=== PATIENT | male | born 1955 | race Caucasian/White ===

== ENCOUNTER 2024-11-24 11:15 | Emergency (ER) | payer MEDICARE, MEDICAID, SELFPAY ==
[2024-11-24 11:23] VITALS: BP 75/57; PULSE 65; RESP 14; TEMP 36.7; O2SAT 97
--- NOTE | 2024-11-24 11:26 | EKG_ITS ---
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
--- NOTE | 2024-11-24 11:26 | XR_ITS ---
Examination: CT brain head without contrast. 2-D sagittal coronal reconstructions Date and time of exam:November 24, 2024 12:15 PM Indications: Syncope today, patient fell with injury to the head, head pain CTDI: vol (mGy):49.3 DLP: (mGycm):978 Technique: Multiple CT axial sections of the brain have been obtained, 5 mm slice thickness. Contrast has not been administered. 2-D sagittal, coronal reconstructions have been obtained Low dose protocols were performed. One or more of the following dose reduction techniques were used; automated exposure control, adjustment of the mA and/or KV according to patient size, use of iterative reconstruction technique. Findings: No significant ventricular enlargement. Intra-axial or extra-axial hemorrhage density is not seen. No mass effect or midline shift Basal cisterns are not remarkable. Fourth ventricle is midline. Cranial vault intact. Impression: Negative for acute hemorrhage, mass effect or midline shift
--- NOTE | 2024-11-24 11:27 | PD.EDADULT ---
ED General RME/HPI General Chief complaint: Syncope / Near Syncope Stated complaint: SYNCOPE Time Seen by Provider: 11/24/24 11:26 Arrival date/time: 11/24/24 11:15 CC: Syncope hypotension HPI patient presents to the ER via EMS report hypotension after syncopal event at the assisted care facility where the patient resides. Baseline reports the patient is baseline confused, patient was arousable with sternal rub speaking to me with simple answers to very simple questions unable to answer what caused the fall. Currently patient has no specific complaints. Related Data Previous Rx's ?Medication ?Instructions ?Recorded albuterol sulfate 90 mcg/actuation 2 puff inhalation Q6H PRN 03/24/22 aerosol inhaler (Proventil HFA) shortness of breath or wheezing #8.5 grams lisinopril 10 mg tablet 10 mg PO QDAY #30 tabs 10/18/22 Allergies Allergy/AdvReac Type Severity Reaction Status Date / Time acetaminophen (From Tylenol) Allergy Severe diarrhea,abd. Verified 10/13/22 11:15 pain codeine Allergy Severe Nausea Verified 10/13/22 11:15 Review of Systems Review of Systems ROS Unobtainable: unobtainable due to mental status Past Medical History Past Medical History CARDIAC: Negative Cardiac Disorders, Angina, Atherosclerotic Heart Disease, Aneurysm or Congestive Heart Failure RESPIRATORY: Negative Chronic Obstructive Pulmonary Disease (COPD) GENITOURINARY: Negative Renal Disease ENDOCRINE: Negative Diabetes Mellitus Type 1 or Diabetes Mellitus Type 2 Social History SMOKING STATUS: Current every day smoker ED Exam Narrative Physical exam: [General: Appears not in any acute distress Head normocephalic, no step-offs hematoma induration ulcerations or depressions. HEENT: Eyes pupils are PERRLA EOMs intact tracking no trapping. Nose no rhinorrhea or epistaxis. Mouth pink dry membranes uvula is midline swallow symmetrical phonation is normal. All other subsystems of HEENT are within acceptable limits Neck is supple nontender Chest equal chest rise nontender to palpation Respiratory: Clear to auscultation no wheezes crackles or rubs CV: Rate rhythm is regular no murmurs rubs or clicks Abdomen is soft nontender, positive bowel sounds all 4 quadrants Back: No CVA tenderness no spinous process tenderness from cervical spine thoracic and lumbar spine Skin: Intact no petechiae rash induration ulceration or crepitus Extremities: Moving all extremity against resistance cap refill less than 2 seconds neurosensory intact Neuro: Awake alert oriented x1, self, Glascow coma 15 no focal deficits] Course Course Course Narrative: At 12 1:33 liter of fluid. The patient still remains hypotensive with a pressure of 97/64. Will order an additional liter of fluid form. Quality Measures none Orders Category Date Time Status EKG (ED ONLY) *Do not use* NOW Care 11/24/24 11:26 Completed Saline [Insert IV] NOW Care 11/24/24 11:[address] cervical spine wo con Stat Exams 11/24/24 11:[address] head/brain wo con Stat Exams 11/24/24 11:26 Completed EKG (ED Only) Stat Exams 11/24/24 11:26 Draft B-Type Natriuretic Peptide Stat Lab 11/24/24 12:32 Completed CBC Stat Lab 11/24/24 12:32 Completed Comprehensive Metabolic Panel Stat Lab 11/24/24 12:32 Completed Drug Screen,Urine Stat Lab 11/24/24 12:47 Completed LDH (Lactate Dehydrogenase) Stat Lab 11/24/24 12:32 Completed Magnesium Stat Lab 11/24/24 12:32 Completed Partial Thromboplastin Time Stat Lab 11/24/24 12:32 Completed Prothrombin Time with INR Stat Lab 11/24/24 12:32 Completed Troponin I Stat Lab 11/24/24 12:32 Completed Urinalysis Stat Lab 11/24/24 12:52 Completed Sodium Chloride 0.9% 1000 ml [Ns] 1,000 ml Med 11/24/24 12:33 Discontinued IV 999 mls/hr Vital Signs Vital signs: Vital Signs Temperature 98.0 F 11/24/24 11:23 Pulse Rate 65 11/24/24 11:23 Respiratory Rate 14 11/24/24 11:23 Blood Pressure 75/57 L 11/24/24 11:23 Pulse Oximetry (%) 97 11/24/24 11:23 [facility] Patient data External records reviewed:: [facility] previous records and EMS form Clinical information provided by:: patient and EMS Social determinants that could affect healthcare access:: none Patient has the following chronic illnesses:: CVA How is presenting disease/condition affected by chronic disease/condition?: uneffected by Evaluation data The following diagnostics were reviewed and interpreted by me:: lab results, radiology exam(s) and EKG tracing(s) Lab and/or radiology exams considered but not ordered:: EKG performed at 1152 shows a ventricular rate of 61 DE interval 127 QRS of 104 QTc of 400 this is sinus rhythm. CBC shows a mild leukocytosis of 14.6 H&H of 12.8 and 39.3 platelets within acceptable limits Coags within acceptable limits CMP shows no significant electrolyte imbalances other than a glucose of 109. No transaminitis T. bili elevation or renal impairment Troponin is less then 0.[address] head is negative, CT C-spine is negative as interpreted by me read by radiology. Urine is negative for UTI UDS is negative for illicit drugs. Interpretation Summary: Patient required a second liter before his blood pressure came up slightly, after second liter patient still running a systolic of 100. Heart rate remains in the 60s. The patient is still somnolent but easily arousable with tactile stimulation. At 1415, the patient is much more awake, was able to ambulate with minimal assistance, responding to simple questions while walking without complication revitalize shows a blood pressure 115/81 with a heart rate of 63. There were no acute findings or requirements that require emergent or immediate intervention patient will be discharged back to the facility. Medications Medications considered but not ordered:: None Medication administrations:: Medication Administration History Discontinued Medications Sodium Chloride (Ns) 1,000 mls @ 999 mls/hr IV .Q1H1M ONE Stop: 11/24/24 13:33 Last Infusion: 11/24/24 14:00 Dose: Infused Documented By: Admin: 11/24/24 12:39 Dose: 999 mls/hr Documented By: VINCENT None Consultations Consultation(s) initiated? (list below): No Diagnosis Differential Diagnosis ED Complaint MDM: Closed head injury neck fracture ACS Most likely diagnosis given after review of the tests above:: Syncope hypotension Admission Indicated Admission indicated?: not indicated Explain why admission is indicated or not indicated:: Stable for outpatient follow-up Admission Request Was there a request for admission?: No Disposition Plan Disposition Plan: Discharge Discharge Attestation Discharge Attestation: The patient and all family members were given an opportunity to ask questions and understood the discharge instructions. Discharge instructions specifically effects, indications for sooner follow up or return to the emergency department, and the expected course of current diagnosis. Patient condition: Stable Medical Decision Making Differential Diagnosis Differential Diagnosis: Closed head injury neck fracture ACS Lab Data 11/24/24 12:32 11/24/24 12:32 Labs: Lab Results 11/24/24 11/24/24 11/24/24 Range/Units 12:32 12:47 12:52 WBC 14.6 H (3.8-10.6) Thou/mm3 RBC 4.21 L (4.50-5.90) Miln/mm3 Hgb 12.8 L (13.5-16.0) g/dL Hct 39.3 L (41.0-53.0) % MCV 93 (80-100) fL MCH 30.4 (25.0-35.0) pg MCHC 32.6 (31.0-37.0) g/dl RDW Std Deviation 45.3 H (35.1-43.9) fL Plt Count 209 (140-440) Thou/mm3 Neut % (Auto) 78 (37-80) % Lymph % (Auto) 5 L (10-50) % [place] % (Auto) 10 (0-12) % Eos % (Auto) 6 (0-10) % Baso % (Auto) 0 (0-2.5) % Neut # (Auto) 11.4 H (1.8-7.7) Thou/mm3 Lymph # (Auto) 0.8 L (1.0-4.8) Thou/mm3 [place] # (Auto) 1.5 H (0.0-0.8) Thou/mm3 Eos # (Auto) 0.9 H (0.0-0.5) Thou/mm3 Baso # (Auto) 0.1 (0.0-0.2) Thou/mm3 Immature Gran # (Auto) 0.10 H (0.00-0.00) Thou/mm3 Absolute Nucleated RBC 0.00 (0.00-0.00) Thou/mm3 Immature Gran % 1 H (0-0) % Nucleated RBC % 0 (0) /100 WBC PT 11.5 (9.0-12.2) Seconds INR 1.1 (0.9-1.3) APTT 27.8 (22.0-36.0) Seconds Sodium 138 (136-145) mMol/L Potassium 4.4 (3.4-5.1) mMol/L Chloride 104 (98-107) mMol/L Carbon Dioxide 25.5 (20.0-31.0) mMol/L Anion Gap 9 (7-16) BUN 21 (9-23) mg/dL Creatinine 1.3 (0.6-1.3) mg/dL Estim Creat Clear Calc Not Performed. eGFR > 60 (60 - ) See Note BUN/Creatinine Ratio 16 (12-20) Ratio Glucose 109 H (74-106) mg/dL Calculated Osmolality 279 (275-295) Calcium 9.3 (8.3-10.6) mg/dL Corrected Calcium 9.6 (8.5-10.1) mg/dL Magnesium 2.0 (1.6-2.6) mg/dL Total Bilirubin 0.4 (0.3-1.2) mg/dL AST 26 (0-34) U/L ALT 26 (10-49) U/L Alkaline Phosphatase 54 (46-116) U/L Lactate Dehydrogenase 157 (120-246) U/L Troponin I < 0.020 (0.0-0.045) ng/mL B-Natriuretic Peptide 66 (0-100) pg/mL Total Protein 6.3 (5.7-8.2) gm/dL Albumin 3.6 (3.4-4.8) gm/dL Globulin 2.7 (2.3-3.5) gm/dL Albumin/Globulin Ratio 1.3 (1.2-2.2) Ur Collection Type Clean Catch Urine Color Yellow (Lt Yel-Yel) Urine Clarity Clear (Clear/Hazy) Urine pH 6.0 (5.0-7.0) Ur Specific [place] 1.019 (1.001-1.035) Urine Protein Trace (Neg - Trace) Urine Glucose (UA) Negative (Negative) Urine Ketones Negative (Negative) Urine Blood Trace (Negative) Urine Nitrite Negative (Negative) Urine Bilirubin Negative (Negative) Urine Urobilinogen (Auto) Negative (0.0-1.0) mg/dL Ur Leukocyte Esterase Negative (Negative) Urine RBC 12 H (0-3) /hpf Urine WBC 2 (0-5) /hpf Ur Squamous Epith Cells 1 (0-5) /hpf Urine Bacteria None (None) Urine Opiates Screen Negative (Negative) Urine Fentanyl Screen Negative (Negative) Ur Barbiturates Screen Negative (Negative) U Amphetamin/Meth Scrn Negative (Negative) U Benzodiazepines Scrn Negative (Negative) U Cocaine Metab Screen Negative (Negative) U Marijuana (THC) Screen Negative (Negative) Discharge Plan Plan Patient Disposition: HOME (Self Care) Patient condition on transfer: Stable Prescriptions/Referrals Prescriptions/Med Rec: No Action albuterol sulfate [Proventil HFA] 90 mcg/actuation HFA aerosol inhaler 2 puff inhalation Q6H PRN (Reason: shortness of breath or wheezing) Qty: 8.5 1RF lisinopril 10 mg tablet 10 mg PO QDAY Qty: 30 0RF Problem List Clinical Impression: Syncope, Dehydration, Hypotension Patient/Caregiver Discharge Instructions Education Materials: Causes of Syncope, Blood Pressure Check Steps Print Language: Setswana Stand Alone Forms: Daphnie Award Info., Patient Portal Info Letter PA/MERCHANDISE ADJUSTMENT CLERK Supervising Physician PA/MERCHANDISE ADJUSTMENT CLERK Supervising Physician: Maurizio Lira ENP
[2024-11-24 11:30] VITALS: PULSE 54; O2SAT 79
--- NOTE | 2024-11-24 11:30 | XR_ITS ---
Examination: CT cervical spine without contrast 2-D sagittal reconstructions 2-D coronal reconstructions 3-D reconstructions. Exam date and time:November 24, 2024 1210 hrs. Indications: Patient fell today with injury to the neck, neck pain CTDI:vol (mGy) 7.87 DLP: (mGycm) 153 Technique: Multiple 2 mm axial sections of the cervical spine have been obtained. The coronal and sagittal reconstructions have been obtained. 3-D reconstructions have been obtained. Low dose protocols were performed. One or more of the following dose reduction techniques were used; automated exposure control, adjustment of the mA and/or KV according to patient size, use of iterative reconstruction technique. Findings: Axial sections demonstrate intact base of the skull. C1 exhibit satisfactory relationship to the odontoid. No acute cervical vertebral body fracture seen. Alignment posterior spinous processes satisfactory. Impression: No acute cervical fracture.
[2024-11-24] MEDS: SODIUM CHLORIDE 0.9% 1000 ML 1,000 ML 999 ML IV (12:39)
[2024-11-24 12:41] VITALS: BP 87/6; PULSE 59; RESP 12; TEMP 36.7; O2SAT 99
[2024-11-24 13:02] LABS: Basophils # (Auto) 0.1 Thou/mm3 (0.0-0.2); Basophils % (Auto) 0 % (0-2.5); Eosinophils # (Auto) 0.9 Thou/mm3 (0.0-0.5); Eosinophils % (Auto) 6 % (0-10); Hematocrit 39.3 % (41.0-53.0); Hemoglobin 12.8 g/dL (13.5-16.0); Immature Granulocytes % (Auto) 1 % (0-0); Lymphocytes # (Auto) 0.8 Thou/mm3 (1.0-4.8); Lymphocytes % (Auto) 5 % (10-50); Mean Corpuscular HGB Conc 32.6 g/dl (31.0-37.0); Mean Corpuscular Hemoglobin 30.4 pg (25.0-35.0); Mean Corpuscular Volume 93 fL (80-100); Monocytes # (Auto) 1.5 Thou/mm3 (0.0-0.8); Monocytes % (Auto) 10 % (0-12); Neutrophils # (Auto) 11.4 Thou/mm3 (1.8-7.7); Neutrophils % (Auto) 78 % (37-80); Nucleated Red Blood Cell % 0 /100 WBC (0); Platelet Count 209 Thou/mm3 (140-440); RDW Standard Deviation 45.3 fL (35.1-43.9); Red Blood Count 4.21 Miln/mm3 (4.50-5.90); White Blood Count 14.6 Thou/mm3 (3.8-10.6)
[2024-11-24 13:09] LABS: INR 1.1 (0.9-1.3); Partial Thromboplastin Time 27.8 Seconds (22.0-36.0); Prothrombin Time 11.5 Seconds (9.0-12.2)
[2024-11-24 13:15] LABS: Alanine Aminotransferase 26 U/L (10-49); Albumin, Serum 3.6 gm/dL (3.4-4.8); Albumin/Globulin Ratio 1.3 (1.2-2.2); Alkaline Phosphatase 54 U/L (46-116); Anion Gap 9 (7-16); Aspartate Amino Transferase 26 U/L (0-34); BUN/Creatinine Ratio 16 Ratio (12-20); Bilirubin,Total 0.4 mg/dL (0.3-1.2); Blood Urea Nitrogen 21 mg/dL (9-23); Calcium 9.3 mg/dL (8.3-10.6); Calcium (Corrected) 9.6 mg/dL (8.5-10.1); Carbon Dioxide 25.5 mMol/L (20.0-31.0); Chloride 104 mMol/L (98-107); Creatinine (Component) 1.3 mg/dL (0.6-1.3); Globulin 2.7 gm/dL (2.3-3.5); Glucose 109 mg/dL (74-106); LDH (Lactate Dehydrogenase) 157 U/L (120-246); Osmolality,Calculated 279 (275-295); Potassium 4.4 mMol/L (3.4-5.1); Sodium 138 mMol/L (136-145); Total Protein 6.3 gm/dL (5.7-8.2); Troponin I < 0.020 ng/mL (0.0-0.045); eGFR > 60 See Note
[2024-11-24 13:17] LABS: B-Type Natriuretic Peptide 66 pg/mL (0-100)
[2024-11-24 13:20] LABS: Collection Type, Urine Clean Catch
[2024-11-24 13:27] LABS: Bilirubin,Urine Negative (Negative); Blood,Urine Trace (Negative); Clarity,Urine Clear (Clear/Hazy); Color,Urine Yellow (Lt Yel-Yel); Glucose, Urine Negative (Negative); Ketones,Urine Negative (Negative); Leukocyte Esterase,Urine Negative (Negative); Nitrite,Urine Negative (Negative); Protein,Urine Trace (Neg - Trace); RBC,Urine 12 /hpf (0-3); Specific Gravity,Urine 1.019 (1.001-1.035); Squamous Epithelial Cell,Urine 1 /hpf (0-5); Urobilinogen,Urine Negative mg/dL (0.0-1.0); WBC,Urine 2 /hpf (0-5)
[2024-11-24 13:34] LABS: Amphetamine/Methamp Scrn,U Negative (Negative); Barbiturate Screen,Urine Negative (Negative); Benzodiazepines Screen,Urine Negative (Negative); Benzoylecgonine Screen, Ur Negative (Negative); Fentanyl Screen,Urine Negative (Negative); Opiate Screen,Urine Negative (Negative); THC Screen,Urine Negative (Negative)
[2024-11-24 15:18] VITALS: BP 108/76; PULSE 63; RESP 17; TEMP 36.7; O2SAT 98
== END 2024-11-24 18:05 | disposition home or self-care (01) ==
LOC: SERX 17:32
PROVIDERS: Registered Nurse General Practice; Emergency Provider Emergency Medicine
DX: E86.0 Dehydration (principal); I95.9 Hypotension, unspecified; S19.9XXA Unspecified injury of neck, initial encounter; S09.90XA Unspecified injury of head, initial encounter; I49.1 Atrial premature depolarization
CPT/HCPCS: 36415; 70450; 72125; 80053; 80307; 81001; 83615; 83735; 83880; 84484; 85025; 85610; 85730; 93005; 96360; 99284; J7030

== ENCOUNTER 2025-07-25 11:06 | Emergency (ER) | payer MEDICARE, MEDICAID, SELFPAY ==
[2025-07-25 11:09] VITALS: BP 137/94; PULSE 65; RESP 18; TEMP 36.6; O2SAT 96
[2025-07-25 11:15] VITALS: BP 127/88; PULSE 60; PULSE 72; RESP 16; RESP 18; TEMP 36.6; O2SAT 95; O2SAT 98; BMI 25.0
--- NOTE | 2025-07-25 11:15 | PC.NURSE ---
FROM [facility]. PT WITH FALL TODAY LANDING FLAT ON FACE. PER REPORT FROM 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 HX MULTIPLE FALLS
--- NOTE | 2025-07-25 11:20 | PC.NURSE ---
Addendum entered by Piper Negro RN 07/25/25 11:39: correction per staff at [facility] not [facility] Original Note: Patient high risk for elopement from [facility] and non compliant with activity restrictions per staff at [facility], requested El, non available, called El white, will us know when one becomes available.
--- NOTE | 2025-07-25 11:29 | XR_ITS ---
Examination: CT brain head without contrast. 2-D sagittal coronal reconstructions Date and time of exam: 07/25/2025, 12:52 p.m. COMPARISON: 11/24/2024 Indication: Trauma CTDI: vol (mGy): 50.4 DLP: (mGycm): 1022 Technique: Multiple CT axial sections of the brain have been obtained, 5 mm slice thickness. Contrast has not been administered. 2-D sagittal, coronal reconstructions have been obtained Low dose protocols were performed. One or more of the following dose reduction techniques were used; automated exposure control, adjustment of the mA and/or KV according to patient size, use of iterative reconstruction technique. Findings: Diffuse cortical atrophy with associated ventricular and extra-axial enlargement. Periventricular low-density white matter changes consistent with chronic small vessel disease. Left frontal soft tissue swelling. Mildly displaced comminuted nasal bone fracture Intra-axial or extra-axial hemorrhage density is not seen. No mass effect or midline shift Basal cisterns are not remarkable. Fourth ventricle is midline. Cranial vault intact. Impression: Minimally displaced comminuted nasal bone fracture Negative for acute hemorrhage, mass effect or midline shift
--- NOTE | 2025-07-25 11:29 | EKG_ITS ---
[facility] Test Date: 2025-07-25 Pat Name: CARRINGTON MANN Department: Room: - Gender: Male Access Tech: : 1955 Requested By: Mitali Watkins Order Number: [id number] Reading MD: Mitali Watkins Measurements Intervals [place] Rate: 59 P: 26 ID: 136 QRS: 26 QRSD: 94 T: 43 QT: 381 QTc: 379 Interpretive Statements SINUS BRADYCARDIA WITH OCCASIONAL VENTRICULAR PREMATURE COMPLEXES LOW QRS VOLTAGE IN PRECORDIAL LEADS [QRS DEFLECTION < 1.0 mV IN CHEST LEADS] Compared to ECG 11/24/2024 11:52:36 Ventricular premature complex(es) now present Low QRS voltage now present Sinus rhythm no longer present /store/S0/[id number]/ecg/[id number].pdf
--- NOTE | 2025-07-25 11:29 | XR_ITS ---
Exam: Chest 1 view, AP Date and time of exam: 07/25/2025, 11:43 a.m. INDICATION: Trauma. Comparison: 11/02/2023 Findings: Normal heart size. No mediastinal adenopathy. No acute fracture Ill-defined opacification left lung base. Lungs otherwise clear Chronic interstitial changes Impression: Left basilar atelectasis versus infiltrate. No acute bony abnormality abnormality
--- NOTE | 2025-07-25 11:29 | XR_ITS ---
Examination: CT maxillofacial, without intravenous contrast. 2-D sagittal reconstructions. 3-D reconstructions. Date and time of exam: 07/25/2025, 12:52 p.m. INDICATION: Trauma CTDI: vol (mGy): 35 DLP: (mGycm): 662 Technique: Multiple axial images of maxillofacial region, 3.0 mm slice thickness. 2-D sagittal and coronal reconstructions. 3-D reconstructions. Low dose protocols were performed. One or more of the following dose reduction techniques were used; automated exposure control, adjustment of the mA and/or KV according to patient size, use of iterative reconstruction technique. Findings: Mildly displaced comminuted nasal bone fracture. Otherwise, bony structures appear intact. Left frontal soft tissue swelling IMPRESSION: Nasal bone fracture. Left frontal soft tissue swelling.
--- NOTE | 2025-07-25 11:29 | XR_ITS ---
Examination: CT cervical spine without contrast 2-D sagittal reconstructions 2-D coronal reconstructions 3-D reconstructions. Exam date and time: 07/25/2025, 12:52 p.m. CTDI:vol (mGy) 15.5 DLP: (mGycm) 333 INDICATION: Trauma COMPARISON: 11/24/2024 Technique: Multiple 2 mm axial sections of the cervical spine have been obtained. The coronal and sagittal reconstructions have been obtained. 3-D reconstructions have been obtained. Low dose protocols were performed. One or more of the following dose reduction techniques were used; automated exposure control, adjustment of the mA and/or KV according to patient size, use of iterative reconstruction technique. Findings: No evidence of acute fracture or dislocation. Stable multilevel degenerative changes with findings most prominent at C5-C6 and C6-C7 with loss of normal disc space height, endplate irregularities and marginal osteophytes. No soft tissue abnormality.. Impression: No acute cervical fracture.
--- NOTE | 2025-07-25 11:33 | PD.EDFALL ---
ED Fall Injury RME/HPI General Chief Complaint: Fall Stated Complaint: FALL, FACIAL INJURY Time Seen by Provider: 07/25/25 11:19 Arrival date/time: 07/25/25 11:06 Limitations: no limitations RME / HPI RME / HPI Narrative: Patient is a 70-year-old male with medical history notable for latent syphilis, polysubstance use, prior stroke, patient baseline GCS 14 is in Emergency Department after having had a fall. Unclear if the fall was witnessed. Unclear the etiology of patient's fall. Patient is intermittently answering questions appropriately. Patient does not know his name. Does know that he is in the hospital. Does not remember what happened earlier today. Patient is not taking any blood thinners. Is allergic to Tylenol and codeine. Patient does not have any pain in his head neck chest abdomen pelvis upper nor lower extremities nor in his back. Patient has no complaints. Related Data Previous Rx's ?Medication ?Instructions ?Recorded albuterol sulfate 90 mcg/actuation 2 puff inhalation Q6H PRN 03/24/22 aerosol inhaler (Proventil HFA) shortness of breath or wheezing #8.5 grams lisinopril 10 mg tablet 10 mg PO QDAY #30 tabs 10/18/22 Allergies Allergy/AdvReac Type Severity Reaction Status Date / Time acetaminophen (From Tylenol) Allergy Severe diarrhea,abd. Verified 07/25/25 11:23 pain codeine Allergy Severe Nausea Verified 07/25/25 11:23 ED Exam General Limitations: Present no limitations General appearance: Present alert and in no apparent distress Head Head exam: Present atraumatic and normocephalic Eye Eye exam: Present normal appearance ENT ENT exam: Present normal exam Neck Neck exam: Present normal inspection and full ROM Chest Chest inspection: Present normal inspection and symmetric chest wall rise Respiratory Respiratory exam: Present normal lung sounds bilaterally; Absent respiratory distress Cardiovascular Cardiovascular exam: Present regular rate Abdominal Exam Abdominal exam: Present soft; Absent distention, tenderness, guarding, rebound or rigidity Extremities Exam Extremities exam: Present normal inspection, full ROM and normal capillary refill; Absent tenderness Back Exam Back exam: Present normal inspection Neurological Exam Neurological exam: Present alert and other (moving all 4 extremities, no sensation intact) Psychiatric Psychiatric exam: Present flat affect Skin Skin exam: Present warm, dry, intact and normal color; Absent rash or cyanosis Course Quality Measures none Orders Category Date Time Status Dermabond Set Up NOW Care 07/25/25 13:36 Active EKG (ED ONLY) *Do not use* NOW Care 07/25/25 11:[address] cervical spine wo con Stat Exams 07/25/25 11:[address] facial bones wo con Stat Exams 07/25/25 11:[address] head/brain wo con Stat Exams 07/25/25 11:29 Completed CXR [XR chest 1V] Stat Exams 07/25/25 11:29 Completed EKG (ED Only) Stat Exams 07/25/25 11:29 Draft CBC Stat Lab 07/25/25 11:40 Completed CMP [Comprehensive Metabolic Panel] Stat Lab 07/25/25 11:40 Completed PT [Prothrombin Time with INR] Stat Lab 07/25/25 11:40 Completed Troponin I Stat Lab 07/25/25 11:40 Completed UA, C/S IF [Urinalysis, C/S if Indicated] Stat Lab 07/25/25 11:55 Completed TET,DIP/PERT AC (Adult)-Tdap [Boostrix Adult (Tdap) Med 07/25/25 11:32 Discontinued Vacc] 0.5 ml IMI .ONCE ONE Vital Signs Vital signs: Vital Signs Temperature 97.8 F 07/25/25 11:09 Pulse Rate 65 07/25/25 11:09 Respiratory Rate 18 07/25/25 11:09 Blood Pressure 137/94 H 07/25/25 11:09 Pulse Oximetry (%) 96 07/25/25 11:09 Oxygen Delivery Method Room Air 07/25/25 11:09 Fall MDM Narrative MDM Narrative:: Patient is a 67-year-old male with medical history notable for syphilis latent, tobacco and alcohol use, prior stroke, Hepatitis C polysubstance use, that is coming in from rehab for ground level. Concern for intracranial injury, facial injury, spinal injury however patient does not have any focal neurodeficits is moving all extremities has no complaints. No midline tenderness palpation along the cervical spine. Patient does have a small laceration to the nose left lateral side not actively bleeding, no signs of extraocular muscle movement entrapment, patient appears to be mentating at his baseline, GCS 14, intermittently answers questions however is moving all extremity spontaneously opening eyes. Unclear the etiology of patient's fall, will perform syncope workup, CT brain CT max face CT cervical spine update patient's tetanus. Labs without any acute hematologic abnormality, no acute metabolic disturbance. Troponin not elevated, EKG performed today at 1141 notable for sinus bradycardia with occasional PVCs, normal intervals, nonspecific T wave changes, not a cardiac alert. Urinalysis without evidence of infection. CTs with evidence of Minimally displaced comminuted nasal bone fracture. Patient is breathing room air, not in respiratory distress. No evidence of septal hematoma. Applied Dermabond to patient's laceration, on reevaluation patient hemodynamically stable not in distress. Advised patient to follow-up with an operations research engineer this week given his minimally displaced nasal bone fracture. Patient is at his neurologic baseline, not distressed. Patient is hemodynamically stable and in distress on multiple reevaluations. Will discharge home close return precautions follow-up with primary care doctor as well as an operations research engineer. Patient data External records reviewed:: [facility] previous records, EMS form and [facility] records Clinical information provided by:: patient and EMS Social determinants that could affect healthcare access:: mental health Patient has the following chronic illnesses:: See MDM How is presenting disease/condition affected by chronic disease/condition?: exacerbated by Evaluation data The following diagnostics were reviewed and interpreted by me:: lab results, radiology exam(s) and EKG tracing(s) Lab and/or radiology exams considered but not ordered:: None Interpretation Summary: See [facility] Medications / Prescriptions Medications or Prescriptions considered but not ordered:: None Medication administrations:: Medication Administration History Discontinued Medications Diphtheria/Tetanus/Acell Pertussis (Diphth,Pertuss(Acell),Tet Vac 0.5 Ml Syr- Adult) 0.5 ml IMi .ONCE ONE Stop: 07/25/25 11:33 Last Admin: 07/25/25 11:43 Dose: 0.5 ml Documented By: BY See above Consultations Consultation(s) initiated? (list below): No Diagnosis Fall Differential Diagnosis: other Most likely diagnosis given after review of the tests above:: Fall, nasal bone fracture, nasal laceration Admission Indicated Admission indicated?: not indicated Admission Request Was there a request for admission?: No Disposition Plan Disposition Plan: Discharge Discharge Attestation Discharge Attestation: The patient and all family members were given an opportunity to ask questions and understood the discharge instructions. Discharge instructions specifically effects, indications for sooner follow up or return to the emergency department, and the expected course of current diagnosis. Patient condition: Stable Discharge Plan Plan Patient Disposition: Xfer Shelter Acute Prescriptions/Referrals Prescriptions/Med Rec: No Action albuterol sulfate [Proventil HFA] 90 mcg/actuation HFA aerosol inhaler 2 puff inhalation Q6H PRN (Reason: shortness of breath or wheezing) Qty: 8.5 1RF lisinopril 10 mg tablet 10 mg PO QDAY Qty: 30 0RF Referrals: No Primary/Family,Physician [Primary Care Provider] - In 1 week Problem List Clinical Impression: Fracture of nasal bone, Laceration, Fall Patient/Caregiver Discharge Instructions Education Materials: ED Nose Fracture, with X-Ray Additional Instructions: It is important that you establish care with an ear nose and throat doctor this week for follow-up of your minimally displaced nasal bone fracture. Follow-up with your primary care doctor within 1 to 2 days. Return immediately if you have difficulty breathing, worsening swelling, or any other symptom of concern. It is important that you do not put anything in your nose do not blow your nose, do not submerge your face in water do not go swimming until cleared by an operations research engineer. Print Language: Honduran Stand Alone Forms: [facility] Award Info., Patient Portal Info Letter
[2025-07-25 11:36] VITALS: BP 127/88; PULSE 58; RESP 19; TEMP 36.8; O2SAT 95
[2025-07-25] MEDS: DIPHTH,PERTUSS(ACELL),TET VAC 0.5 ML SYR- ADULT IMi (11:43)
[2025-07-25 11:53] LABS: Basophils # (Auto) 0.1 Thou/mm3 (0.0-0.2); Basophils % (Auto) 1 % (0-2.5); Eosinophils # (Auto) 0.6 Thou/mm3 (0.0-0.5); Eosinophils % (Auto) 8 % (0-10); Hematocrit 43.2 % (41.0-53.0); Hemoglobin 14.4 g/dL (13.5-16.0); Immature Granulocytes Auto 0.03 Thou/mm3 (0.00-0.00); Lymphocytes # (Auto) 1.3 Thou/mm3 (1.0-4.8); Lymphocytes % (Auto) 17 % (10-50); Mean Corpuscular HGB Conc 33.3 g/dl (31.0-37.0); Mean Corpuscular Hemoglobin 30.9 pg (25.0-35.0); Mean Corpuscular Volume 93 fL (80-100); Monocytes # (Auto) 0.7 Thou/mm3 (0.0-0.8); Monocytes % (Auto) 9 % (0-12); Neutrophils # (Auto) 4.8 Thou/mm3 (1.8-7.7); Neutrophils % (Auto) 64 % (37-80); Nucleated Red Blood Cell # 0.00 Thou/mm3 (0.00-0.00); Nucleated Red Blood Cell % 0 /100 WBC (0); Platelet Count 238 Thou/mm3 (140-440); RDW Standard Deviation 43.7 fL (35.1-43.9); Red Blood Count 4.66 Miln/mm3 (4.50-5.90); White Blood Count 7.4 Thou/mm3 (3.8-10.6)
[2025-07-25 12:03] LABS: Collection Type, Urine Catheter
[2025-07-25 12:16] LABS: INR 1.0 (0.9-1.3); Prothrombin Time 10.8 Seconds (9.0-12.2)
[2025-07-25 12:26] LABS: Alanine Aminotransferase 36 U/L (10-49); Albumin, Serum 4.3 gm/dL (3.4-4.8); Albumin/Globulin Ratio 1.6 (1.2-2.2); Alkaline Phosphatase 68 U/L (46-116); Anion Gap 8 (7-16); Aspartate Amino Transferase 26 U/L (0-34); BUN/Creatinine Ratio 12 Ratio (12-20); Bilirubin,Total 0.4 mg/dL (0.3-1.2); Blood Urea Nitrogen 12 mg/dL (9-23); Calcium 9.6 mg/dL (8.3-10.6); Calcium (Corrected) 9.6 mg/dL (8.5-10.1); Carbon Dioxide 28.5 mMol/L (20.0-31.0); Chloride 106 mMol/L (98-107); Creatinine (Component) 1.0 mg/dL (0.6-1.3); Estimated Creatinine Clearance 66.1 mL/min (>60); Globulin 2.7 gm/dL (2.3-3.5); Glucose 86 mg/dL (74-106); Osmolality,Calculated 281 (275-295); Potassium 4.1 mMol/L (3.4-5.1); Sodium 142 mMol/L (136-145); Total Protein 7.0 gm/dL (5.7-8.2); Troponin I < 0.002 ng/mL (0.0-0.045); eGFR > 60 See Note
[2025-07-25 12:36] VITALS: BP 126/76; PULSE 51; RESP 19; TEMP 37.2; O2SAT 95
[2025-07-25 12:41] LABS: Bilirubin,Urine Negative (Negative); Blood,Urine Negative (Negative); Clarity,Urine Clear (Clear/Hazy); Color,Urine Lt-Yellow (Lt Yel-Yel); Culture Indicated,Urine Not Indicated; Glucose, Urine Negative (Negative); Ketones,Urine Negative (Negative); Leukocyte Esterase,Urine Negative (Negative); Nitrite,Urine Negative (Negative); PH,Urine 6.5 (5.0-7.0); Protein,Urine Negative (Neg - Trace); RBC,Urine 1 /hpf (0-3); Specific Gravity,Urine 1.006 (1.001-1.035); Squamous Epithelial Cell,Urine 1 /hpf (0-5); Urobilinogen,Urine Negative mg/dL (0.0-1.0); WBC,Urine 3 /hpf (0-5)
[2025-07-25 12:45] LABS: Sperm,Urine Present
[2025-07-25 13:17] VITALS: BP 129/86; PULSE 57; RESP 20; O2SAT 95
--- NOTE | 2025-07-25 14:28 | PC.NURSE ---
facility called about patient being discharged at this time , spoke to radha
[2025-07-25 14:32] VITALS: BP 146/97; PULSE 62; RESP 18; TEMP 37.1; O2SAT 98
--- NOTE | 2025-07-25 15:10 | PC.CC ---
PRESCRIPTIONISTConcepcion was consulted by nanosystems engineer Kathy for transportation for the patient back to the facility. PRESCRIPTIONIST attempted to call [facility] and they report the patient is not active with them. PRESCRIPTIONIST made contact with Angie from [facility] who was able to arrange transportation. clerical and office support workers time is [id number].
== END 2025-07-25 15:45 ==
PROVIDERS: Emergency Provider Emergency Medicine
DX: S02.2XXA Fracture of nasal bones, initial encounter for closed fracture (principal); W19.XXXA Unspecified fall, initial encounter; Z86.73 Personal history of transient ischemic attack (TIA), and cerebral infarction without residual deficits
CPT/HCPCS: 36415; 70450; 70486; 71045; 72125; 80053; 81001; 84484; 85025; 85610; 90471; 90715; 93005; 99284